=== PATIENT | female | born 1945 | race Caucasian/White ===

== ENCOUNTER 2023-08-23 15:02 | Emergency (ER) | payer OTHER, SELFPAY ==
[2023-08-23 15:07] VITALS: BP 197/97
[2023-08-23 15:25] LABS: % Basophils 0.6 % (0-2); % Immature Granulocytes 0.3 % (0-0.5); % Lymphocytes 24.7 % (20.5-51.1); % Monocytes 7.3 % (1.7-9.3); % Neutrophils 63.1 % (42.2-75.2); Absolute Basophils 0.1 10^3/uL (0-0.2); Absolute Eosinophils 0.4 10^3/uL (0-0.7); Absolute Lymphocytes 2.3 10^3/uL (1.2-3.4); Absolute Monocytes 0.7 10^3/uL (0.1-0.6); Absolute Neutrophils 5.9 10^3/uL (1.4-6.5); Hematocrit 42.1 % (37.0-47.0); Hemoglobin 14.4 g/dL (12.0-16.0); Mean Corp Hgb Conc. 34.2 g/dL (33.0-37.0); Mean Corpuscular Hgb 30.8 pg (27.0-31.0); Mean Platelet Volume 9.8 fL (7.4-10.4); Nucleated Red Blood Cells % 0 %; Platelet Count 304 10^3/uL (130-400); Red Blood Cell Count 4.68 10^6/uL (4.20-5.40); Red Cell Dist. Width 12.6 % (11.5-14.5); White Blood Cell Count 9.3 10^3/uL (4.8-10.8)
[2023-08-23 16:02] LABS: ALT (SGPT) 19 U/L (0-35); AST (SGOT) 25 U/L (14-36); Alkaline Phosphatase 100 U/L (38-126); Blood Urea Nitrogen 20 mg/dl (7-17); Calcium 9.7 mg/dl (8.4-10.2); Carbon Dioxide 28 mmol/L (22-30); Chloride 100 mmol/L (98-107); Glucose 173 mg/dl (70-99); Potassium 4.3 mmol/L (3.5-5.1); Sodium 134 mmol/L (135-145); Total Bilirubin 0.7 mg/dl (0.2-1.3); Total Protein 7.6 g/dl (6.3-8.2); eGFR > 60.00
--- NOTE | 2023-08-23 16:16 | ED.GENMED ---
History of Present Illness
<Miesha Wen PA-C - Last Filed: 08/24/23 01:04>
General
Chief Complaint: Visual Problem
Source: patient
Exam Limitations: none
Time Seen by Provider: 08/23/23 15:40
Nursing documentation reviewed up to this point in time: agreed with
Travel History
Have you had any contact with someone who has COVID-19?: No
Do you have any symptoms of coronavirus? Fever > 100 degrees, chills, cough, shortness of breath, sore throat, loss of taste or smell, muscle aches, or headache?: No
History of Present Illness
History of Present Illness:
pt is a 78 y/o F with h/o NIDDM, HTN, HLD
self reported h/o migraines
which she says is usually some floating flashing lights in either eye followed by some pressure in her head, which usually resolves after lying down or taking magnesium
pt says she has never seen neuro
over the past few weeks (tells me, 2 weeks, told dr. tapia 6 weeks) pt has been having episodes where she sees a shadow/dark profile of her grandson in her right lateral perifpheral field of vision and when she turns to the rright to see if he's
tehre and the image is gone
this has come and gone for the past few weeks
not really associated with a headache per say - she says she will sometimes feel 'fullness' in her head but unlike the triage she actually denied having a heaache to me and denies that she has any symptoms here
the symptosm happen more in the dark
no vision loss, vomiting, confusion, weaknss, gait problems, slurred speech, neck pain, scalp pain
Past History
<Miesha Wen PA-C - Last Filed: 08/24/23 01:04>
Past History
ED Past Medical History: HTN, Hypercholesterolemia, NIDDM, Other (Pulmonary emboli) and Other (History of arthritis, migraines)
ED Past Surgical History: Appendectomy, Cholecystectomy, Gynecological (Hysterectomy) and Orthopedic (Left total knee replacement)
Social History
Tobacco: Non-smoker
Alcohol: None
Personal:
Living: with family
Family History
Family History: Negative Diabetes
Review of Systems
<Miesha Wen PA-C - Last Filed: 08/24/23 01:04>
Review of Systems
Allergies reviewed?: Yes
All Other Systems: Not applicable
Phy Exam
<Miesha Wen PA-C - Last Filed: 08/24/23 01:04>
Physical Exam
Physical Exam:
GENERAL: Alert , in no apparent distress, very wlell appearing
HEAD: NCAT no scalp tenderness
EYE: pupils equal and reactive, no nystagmus, no photophobia
NECK: Supple,full rom, nontender
ENT: o/p clr, mmm.
CARDIAC: Regular rate and rhythm . no edema
LUNGS: Clear breath sounds bilaterally, no acute respiratory distress, no wheezes/rales/rhonchi
ABDOMEN: Soft, without focal tenderness, no r/g, no cvat
NEUROLOGICAL: Alert and orientedx 4, cn intact, no facial asymmetry, 5/5 strength in UE/LE, sensation intact, romberg neg, ambulates without assistance, neg pronator drift, visual burks normal
SKIN: Warm and dry, skin intact.
MUSCULOSKELETAL: No edema, well perfused.
PSYCH: Normal and appropriate interaction.
Course
<Miesha Wen PA-C - Last Filed: 08/24/23 01:04>
Orders/Labs/Results
Orders:
Orders
08/23/23 15:18
Complete Blood Count/With Diff Urgent
Comprehensive Metabolic Panel Urgent
Erythrocyte Sed Rate Urgent
Comment: ADD ON
Folate Urgent
Comment: ADD ON
TSH Urgent
Comment: ADD ON
Vitamin B12 Urgent
Comment: ADD ON
08/23/23 16:06
CT Head W/o Iv Contrast Urgent
Comment:
Reason For Exam: headache vision changes 2 weesks
08/23/23 18:08
Add On- LAB Urgent
Tests Added?: b12, folate, tsh, esr
08/23/23 18:43
Aspirin Chewable [Low Strength Aspirin] 81 mg PO NOW STA
Abnormal Lab Results
08/23/23
15:18
Absolute Monos (auto) 0.7 H 10^3/uL
(0.1-0.6)
ESR 22 H mm/hour
(0-20)
Sodium 134 L mmol/L
(135-145)
BUN 20 H mg/dl
(7-17)
Glucose 173 H mg/dl
(70-99)
Folate > 20.0 H ng/ml
(2.76-20)
08/23/23 15:18
08/23/23 15:18
Vital Signs
Initial and Last Documented VS:
Initial Vital Signs
Temp Pulse Resp BP Pulse Ox
97.8 F 98 18 197/97 98
08/23/23 15:07 08/23/23 15:07 08/23/23 15:07 08/23/23 15:07 08/23/23 15:07
Last Documented Vital Signs
Temp Pulse Resp BP Pulse Ox
97.8 F 81 16 160/75 97
08/23/23 15:07 08/23/23 18:38 08/23/23 18:38 08/23/23 18:38 08/23/23 18:38
<Ryan Lester, DO - Last Filed: 08/23/23 17:12>
Orders/Labs/Results
Orders:
Orders
08/23/23 15:18
Complete Blood Count/With Diff Urgent
Comprehensive Metabolic Panel Urgent
Erythrocyte Sed Rate Urgent
Comment: ADD ON
Folate Urgent
Comment: ADD ON
TSH Urgent
Comment: ADD ON
Vitamin B12 Urgent
Comment: ADD ON
08/23/23 16:06
CT Head W/o Iv Contrast Urgent
Comment:
Reason For Exam: headache vision changes 2 weesks
08/23/23 18:08
Add On- LAB Urgent
Tests Added?: b12, folate, tsh, esr
08/23/23 18:43
Aspirin Chewable [Low Strength Aspirin] 81 mg PO NOW STA
Abnormal Lab Results
08/23/23
15:18
Absolute Monos (auto) 0.7 H 10^3/uL
(0.1-0.6)
ESR 22 H mm/hour
(0-20)
Sodium 134 L mmol/L
(135-145)
BUN 20 H mg/dl
(7-17)
Glucose 173 H mg/dl
(70-99)
Folate > 20.0 H ng/ml
(2.76-20)
08/23/23 15:18
08/23/23 15:18
Vital Signs
Initial and Last Documented VS:
Initial Vital Signs
Temp Pulse Resp BP Pulse Ox
97.8 F 98 18 197/97 98
08/23/23 15:07 08/23/23 15:07 08/23/23 15:07 08/23/23 15:07 08/23/23 15:07
Last Documented Vital Signs
Temp Pulse Resp BP Pulse Ox
97.8 F 81 16 160/75 97
08/23/23 15:07 08/23/23 18:38 08/23/23 18:38 08/23/23 18:38 08/23/23 18:38
<Miesha Wen PA-C - Last Filed: 08/24/23 01:04>
MDM/Problems Addressed
Differential Diagnosis Includes:
migraine, hallucinations, dementia, brain turmo
MDM/Problems Addressed:
78 y/o M with h/o HTN, HLD, NIDDM
here with vision change in her periphery that she has seen intermittently for 2-6 weeks
not really associated with headahce
not having symptmos now
neuro exam intact
pt mildly hypertensive
head ct with some white matter changes
labs unremakarable
reassuring ESR 22
d/w ed attending dr. lester who saw the patient as well as neuro attending dr. benavides
given the longevity of the symptmos with reasuring exxam and neg ct, unlikely to warrant further emergent work up
but consider outpatient mri and opthalmology eval
i did speak with pt's pcp who is aware of the symptoms and he will encourage follow up with eye and neuro.
<Miesha Wen PA-C - Last Filed: 08/24/23 01:04>
*Critical Care Note
Total Time (30-74mins, 75-104mins- exclusive of procedures): Not Applicable
ED Attending Note
<Miesha Wne PA-C - Last Filed: 08/24/23 01:04>
-
Portions of this chart may have been created with voice recognition software.� Occasional wrong word or��sound alike� substitutions may have occurred due to the inherent limitations of voice recognition software.
<Ryan Lester, - Last Filed: 08/23/23 17:12>
ED Attending Note
Patient seen and examined by attending physician: Yes
I performed the substantive portion of visit, reviewed & personally made and approve the management plan that is documented in note by myself or XOCHILT.: Yes
Discharge Plan
Departure
Patient Disposition: Home (Routine Discharge)
Date of Disposition: 08/23/23
Time of Disposition: 18:26
Patient with high blood pressure during this ER visit?: Yes
Condition: Fair
Covid-19: Not Applicable
Discharge Problem:
Alteration in vision
Instructions: Migraines (DC), BLOOD PRESSURE
Prescriptions:
New
aspirin [Adult Low Dose Aspirin] 81 mg tablet,delayed release (DR/EC)
81 mg PO DAILY Qty: 14 0RF
No Action
lisinopril-hydrochlorothiazide 1 EACH tablet
1 ea PO DAILY
Patient Comments:
20 -12.5 mg dose
cholecalciferol (vitamin D3) 1,000 UNITS tablet
500 units PO DAILY
Multivitamin Chewable
2 tab PO DAILY
metformin 500 MG tablet
500 mg PO BID
prednisone 10 MG tablet
10 mg PO BID
glipizide 5 MG tablet
5 mg PO
Patient Comments:
0200 and 1300
rivaroxaban [Xarelto] 20 MG tablet
20 mg PO DAILY
Referrals:
Hernandez Benavides MD [Active] - Follow up in 1 week (NEURO)
Ramsey López MD [Family Provider] - Follow up in 2-3 days
Activity Restrictions/Additional Instructions:
YOU NEED TO CALL DR. LÓPEZ FOR A FOLLOW UP
HE IS AWARE OF TODAY'S FINDINGS.
HE WANTS YOU TO START TAKING LOW DOSE ASPIRIN ONCE A DAY
YOU ALSO SHOULD SEE YOUR EYE DOCTOR
RETURN FOR: SEVERE HEADACHE, VISION LOSS, NECK PAIN, FEVER, OR ANY CONCENRS.
OTHERWISSE YOU NEED FURTHER TESTING FROM YOUR DOCTOR AND ALSO POSSIBLY NEUROLOGY
CALL THE OFFICE FOR AN APPOINTMENT.
Interventions
Interventions:
*Risk Screen - Suicide Last Done: 08/23/23 15:07
*General Assessment Last Done: 08/23/23 15:07
*Neglect/Abuse Screening Last Done: 08/23/23 15:07
ED- Fall Risk Assessment Last Done: 08/23/23 18:48
*ED COVID-19 Vaccine History Last Done: 08/23/23 15:51
*Nursing Disposition Last Done: 08/23/23 18:48
ED- Neurological Assessment Last Done: 08/23/23 15:50
ED-EENT Assessment Last Done: 08/23/23 15:50
ED Swallowing Screen Last Done: 08/23/23 15:50
Discharge Date and Time
Discharge Date/Time: 08/23/23 18:49
[2023-08-23 16:59] VITALS: BP 161/78
[2023-08-23 18:31] LABS: Erythrocyte Sed Rate 22 mm/hour (0-20)
[2023-08-23 18:38] VITALS: BP 160/75
[2023-08-23] MEDS: LOW STRENGTH ASPIRIN 81 MG PO (18:48)
[2023-08-23 19:26] LABS: TSH 0.89 uIU/ml (0.47-4.68)
[2023-08-23 20:01] LABS: Folate > 20.0 ng/ml (2.76-20); Vitamin B12 537 pg/ml (239-931)
== END 2023-08-23 18:49 | disposition home or self-care (01) ==
LOC: EMR 15:02
PROVIDERS: EMERGENCY PHYSICIAN Emergency Medicine; FAMILY PHYSICIAN Family Medicine
DX: H53.9 Unspecified visual disturbance (principal); I10 Essential (primary) hypertension; E78.5 Hyperlipidemia, unspecified; E11.9 Type 2 diabetes mellitus without complications
CPT/HCPCS: 99284; 70450; 80053; 82607; 82746; 84443; 85025; 85652

== ENCOUNTER → 2024-06-05 11:43 | Outpatient (REF) | payer OTHER, SELFPAY | LOC: RAD 11:43 | PROVIDERS: ATTENDING PHYSICIAN Family Medicine | DX: M79.672 Pain in left foot (principal) | CPT/HCPCS: 73630 ==